=== PATIENT | female | born 1965 | race Caucasian/White ===

== ENCOUNTER 2016-06-20 18:41 | Emergency (ER) | payer OTHER ==
[~2016-06-20] VITALS: Ht 162.6 cm; Wt 77.1 kg
[~2016-06-20 18:41] MED LIST: BENA20TA2 PO; GABA100C PO; HUMALOG INSULIN SQ; LANTUS INSULIN SQ; METF500T4 PO; SERT50TA PO; SIMV20TA6 PO; WARF5TAB77 PO
--- NOTE | 2016-06-20 18:50 | NUR ---
DR LOPEZ AT THE BEDSIDE FOR EVAL AND EXAM.
[2016-06-20] MEDS ORDERED: IV NORMAL SALINE 1000 ML BAG IV ONE ×2 (19:00→20:15)
[2016-06-20 19:16] LABS: BASOPHILS % (AUTO) 0.3 % (0.0-2.0); EOSINOPHILS # (AUTO) 0.3 K/uL (0.0-0.7); EOSINOPHILS % (AUTO) 2.9 % (0.0-7.0); HEMOGLOBIN 8.9 g/dL (10.9-14.3); LYMPHOCYTES # (AUTO) 1.7 K/uL (20.0-40.0); LYMPHOCYTES % (AUTO) 16.8 % (20.5-51.5); MEAN CORPUSCULAR HEMOGLOBIN 22.7 uug (24.7-32.8); MEAN CORPUSCULAR HGB CONC 32 g/dL (32.3-35.6); MONOCYTES # (AUTO) 0.4 K/uL (2.0-10.0); MONOCYTES % (AUTO) 4.3 % (0.0-11.0); NEUTROPHILS # (AUTO) 7.5 K/uL (1.8-8.9); NEUTROPHILS % (AUTO) 75.7 % (38.5-71.5); PLATELET COUNT (AUTO) 232 K/uL (179-408); RED BLOOD CELL COUNT(AUTO) 3.94 MIL/uL (3.63-4.92); RED CELL DISTRIBUTION WIDTH 16.7 % (12.3-17.7); WHITE BLOOD COUNT (AUTO) 9.9 K/uL (3.8-11.8)
[2016-06-20 19:31] LABS: ALBUMIN 3.3 g/dL (3.4-5.0); BILIRUBIN,DIRECT 0.1 mg/dL (0.0-0.2); BILIRUBIN,TOTAL 0.5 mg/dL (0.2-1.0); CALCIUM 8.9 mg/dL (8.5-10.1); POTASSIUM 4.1 mmol/L (3.5-5.1); TOTAL PROTEIN, SERUM 7.7 g/dL (6.4-8.2)
[2016-06-20 19:32] LABS: TROPONIN I < 0.017 ng/mL (0.00-0.056)
[2016-06-20 19:33] LABS: CREATININE 1.4 mg/dL (0.6-1.3)
[2016-06-20 19:40] LABS: BAND % (MANUAL) 6 % (0-10); EOSINOPHILS % (MANUAL) 3 % (0-8); LYMPHOCYTES % (MANUAL) 19 % (20-40); MONOCYTES % (MANUAL) 5 % (2-10); NEUTROPHILS % (MANUAL) 67 % (42-75)
[2016-06-20 19:41] LABS: ANISOCYTOSIS 1+; HYPOCHROMASIA 2+; PLATELET ESTIMATE ADEQUATE
[2016-06-20 20:01] LABS: LACTIC ACID 3.3 mmol/L (0.4-2.0)
[2016-06-20] MEDS ORDERED: LEVOFLOXACIN 750 MG/D5W 150 ML PIGGYBACK IV ONE (20:15)
--- NOTE | 2016-06-20 20:15 | NUR ---
PT HAVING CONCERNS REGARDING STAYING IN THE [facility], STATES SHE WANTS TO LEAVE AND STATES SHE WILL COME BACK TOMORROW, AARTI ADVISED PT NEEDS TO STAY INPT FOR SEPSIS... AARTI ADVISED PT REQUESTING TO LEAVE....
[2016-06-20] MEDS ORDERED: LEVOFLOXACIN 750MG/D5W 150 ML IV ONE (20:24)
[2016-06-20] MEDS ORDERED: ASPIRIN EC 325 MG TABLET.DR PO SCH (20:30)
--- NOTE | 2016-06-20 20:30 | NUR ---
AARTI IN ROOM WITH PT ADVISING OF THE RISKS OF LEAVING [facility] PRIOR TO BEING TREATED... PT CHANGED HER MIND AND STATES SHE WAS TO HAVE TREATMENT AND PLAN TO STAY INPT RESUMED...
[2016-06-20] MEDS ORDERED: ASPIRIN 325 MG TABLET ONE (20:56)
--- NOTE | 2016-06-20 20:58 | NUR ---
PER ERMD ORDER, CLEANED WOUNDS ON FEET AND PLACED DRESSING, PT TOLERATED CLEANING AND DRESSING WELL...
[2016-06-20 21:28] LABS: *BILIRUBIN,URIN NEGATIVE (NEGATIVE); *BLOOD, URINE Trace-intact (NEGATIVE); *CLARITY,URINE CLEAR (CLEAR); *COLOR,URINE YELLOW (YELLOW); *KETONES,URINE NEGATIVE (NEGATIVE); *PROTEIN,URINE NEGATIVE (NEGATIVE); *UROBILINOGEN,URINE 0.2 E.U./dl (NORMAL); LEUKOCYTE ESTERASE ,URINE 1+ (NEGATIVE); NITRITE, URINE NEGATIVE (NEGATIVE); PH,URINE 5.5 (5.0-8.0)
[2016-06-20 21:38] LABS: UGLUCOSE 2+ (NEGATIVE)
[2016-06-20 21:41] LABS: BACTERIA,URINE FEW /HPF (NONE SEEN); RBC,URINE 0-3 /HPF (0-3); SQUAMOUS EPITHELIAL CELL,UR FEW /HPF (NONE SEEN); WBC,URINE 0-3 /HPF (0-3)
--- NOTE | 2016-06-20 23:14 | NUR ---
Patient does not wish to proceed with medical care recommended by Dr. Peter LOPEZ ). Patient given information related to possible complications, up to and including , which could occur as a result of leaving the hospital at this time. Patient verbalizes understanding of risks involved due to leaving against medical advice. Patient has signed AMA form. Pt walked out of ER unassisted with daughter and belongings at side...
[2016-06-20 23:26] VITALS: BP 142/77
== END 2016-06-20 23:28 | disposition left against medical advice (07) ==
LOC: ER 18:46
DX: G45.9 Transient cerebral ischemic attack, unspecified (principal); E87.2 Acidosis; D64.9 Anemia, unspecified; I10 Essential (primary) hypertension; E11.9 Type 2 diabetes mellitus without complications; R47.81 Slurred speech; Z88.0 Allergy status to penicillin; Z79.4 Long term (current) use of insulin; Z79.01 Long term (current) use of anticoagulants
CPT/HCPCS: 36415; 70450; 71010; 80048; 80076; 81001; 83605 ×2; 84484; 84703; 85025; 85610; 87040 ×2; 93005; 96361; 96365; 96366; 99291; A4663; J1956; J7030 ×2; J7040; 70030-TC

== ENCOUNTER 2016-08-24 17:20 | Emergency (ER) | payer OTHER ==
[~2016-08-24] VITALS: Ht 160 cm; Wt 77.1 kg
--- NOTE | 2016-08-24 17:26 | NUR ---
DR Huffman at the bedside for eval and exam.
--- NOTE | 2016-08-24 17:30 | NUR ---
Wet to dry dressing applied to JAY foot per md order. Pt tolorated well.
--- NOTE | 2016-08-24 17:43 | NUR ---
[facility] burn center called and ER MD spoke to intake and will call back.
[2016-08-24] MEDS ORDERED: KETOROLAC TROMETHAMINE 15 MG INJ IVP ONE (17:45)
--- NOTE | 2016-08-24 17:45 | NUR ---
Spoke to dhaval charge nurse at [facility], pt will be transfer to ER for higher level os care.
--- NOTE | 2016-08-24 17:47 | NUR ---
Called [facility] for pt's BLS tx, ETA is 45 min. Pt is aware of tx and signed transfer paperwork.
[2016-08-24] MEDS: KETOROLAC TROMETHAMINE 15 MG INJ IM ONE (17:59)
[2016-08-24 18:02] LABS: BASOPHILS % (AUTO) 0.1 % (0.0-2.0); EOSINOPHILS # (AUTO) 0.2 K/uL (0.0-0.7); EOSINOPHILS % (AUTO) 1.3 % (0.0-7.0); HEMATOCRIT 35.4 % (37-47); HEMOGLOBIN 10.9 G/DL (12.0-16.0); LYMPHOCYTES # (AUTO) 1.1 K/UL (0.8-4.8); LYMPHOCYTES % (AUTO) 8.5 % (20.5-51.5); MEAN CORPUSCULAR HEMOGLOBIN 21.7 UUG (27.0-31.0); MEAN CORPUSCULAR HGB CONC 31 g/dL (32.0-37.0); MEAN CORPUSCULAR VOLUME 70.3 FL (81.0-99.0); MONOCYTES # (AUTO) 0.5 K/UL (0.1-1.30); MONOCYTES % (AUTO) 4.1 % (0.0-11.0); NEUTROPHILS # (AUTO) 10.7 K/UL (1.8-8.9); PLATELET COUNT (AUTO) 205 K/UL (150-450); RED BLOOD CELL COUNT(AUTO) 5.03 MIL/UL (4.2-5.4); WHITE BLOOD COUNT (AUTO) 12.5 K/UL (4.0-11.2)
[2016-08-24 18:07] LABS: BILIRUBIN,DIRECT 0.1 mg/dL (0.0-0.2); BILIRUBIN,TOTAL 0.6 mg/dL (0.2-1.0); CREATININE 1.1 mg/dL (0.6-1.3); POTASSIUM 4.2 mmol/L (3.5-5.1); TOTAL PROTEIN, SERUM 7.9 g/dL (6.4-8.2)
[2016-08-24] MEDS ORDERED: KETOROLAC TROMETHAMINE 15 MG INJ ONE (18:07)
[2016-08-24 18:17] LABS: BAND % (MANUAL) 5 % (0-10); LYMPHOCYTES % (MANUAL) 10 % (20-40); MONOCYTES % (MANUAL) 4 % (2-10); NEUTROPHILS % (MANUAL) 81 % (42-75)
--- NOTE | 2016-08-24 19:05 | NUR ---
report given to ER charge nurse in [facility]. As well as professional services consultant for tx.
--- NOTE | 2016-08-24 19:11 | NUR ---
Pt left ER in stable condition, all belongings sent w/ pt.
== END 2016-08-24 19:13 | disposition short-term general hospital (02) ==
LOC: ER 17:25
DX: T25.222A Burn of second degree of left foot, initial encounter (principal); T25.221A Burn of second degree of right foot, initial encounter; E11.9 Type 2 diabetes mellitus without complications; E78.5 Hyperlipidemia, unspecified; I10 Essential (primary) hypertension; Z79.01 Long term (current) use of anticoagulants; Z79.4 Long term (current) use of insulin; Z86.73 Personal history of transient ischemic attack (TIA), and cerebral infarction without residual deficits; Z88.0 Allergy status to penicillin; X08.8XXA Exposure to other specified smoke, fire and flames, initial encounter; Y93.89 Activity, other specified; Y92.89 Other specified places as the place of occurrence of the external cause; Y99.8 Other external cause status
CPT/HCPCS: 36415; 85025; 85730; A4217; A4663; J1885